=== PATIENT | female | born 1960 | race Caucasian/White ===

== ENCOUNTER → 2017-02-02 | Outpatient (CLI) | payer MEDICARE | LOC: KOH-I 10:44 | DX: R10.11 Right upper quadrant pain (principal); K76.0 Fatty (change of) liver, not elsewhere classified; Z90.49 Acquired absence of other specified parts of digestive tract | CPT/HCPCS: 76705 ==

== ENCOUNTER → 2021-03-26 | Outpatient (CLI) | payer OTHER ==
[~2021-03-26] MED LIST: CLARITIN10 MG PO; FLONASE 0.05% N16 GM; NEURONTIN 300300 MG PO; OMEPRAZOLE40 MG PO; PRAVACHOL20 MG PO; TOPROL XL50 MG PO; VITAMIN D32000 UNI1 PO; WELLBUTRIN SR150 M1 PO; ZANTAC 150 MG150 MG PO
== END ==
LOC: US 09:23
DX: K76.0 Fatty (change of) liver, not elsewhere classified (principal)
CPT/HCPCS: 76705

== ENCOUNTER → 2021-08-07 | Outpatient (CLI) | payer OTHER | LOC: MAMO 11:00 | DX: Z12.31 Encounter for screening mammogram for malignant neoplasm of breast (principal) | CPT/HCPCS: 77063; 77067 ==

== ENCOUNTER → 2021-12-13 | Outpatient (CLI) | payer OTHER | LOC: US 09:10 | DX: R10.13 Epigastric pain (principal); R93.2 Abnormal findings on diagnostic imaging of liver and biliary tract; Z90.49 Acquired absence of other specified parts of digestive tract | CPT/HCPCS: 76700 ==

== ENCOUNTER → 2022-01-14 | Day surgery (SDC) | payer OTHER ==
[~2022-01-14] VITALS: Ht 157.5 cm; Wt 74.4 kg
[~2022-01-14] MED LIST changes: +FAMOTIDINE40 MG PO; +FEXOFENADINE H180 MG PO; -PRAVACHOL20 MG PO; +PRAVASTATIN SOD40 MG PO
== END | disposition home or self-care (01) ==
LOC: OR 06:36
DX: K29.50 Unspecified chronic gastritis without bleeding (principal); K21.00 Gastro-esophageal reflux disease with esophagitis, without bleeding; Z80.0 Family history of malignant neoplasm of digestive organs; K44.9 Diaphragmatic hernia without obstruction or gangrene; K59.09 Other constipation; R14.0 Abdominal distension (gaseous); K64.1 Second degree hemorrhoids; I10 Essential (primary) hypertension; E66.9 Obesity, unspecified; E78.5 Hyperlipidemia, unspecified; E78.00 Pure hypercholesterolemia, unspecified; M79.7 Fibromyalgia; Z90.49 Acquired absence of other specified parts of digestive tract; Z68.30 Body mass index [BMI] 30.0-30.9, adult; Z79.899 Other long term (current) drug therapy; Z88.1 Allergy status to other antibiotic agents; Z98.51 Tubal ligation status; Z20.822 Contact with and (suspected) exposure to COVID-19
CPT/HCPCS: J2704; J7040

== ENCOUNTER → 2022-05-28 | Outpatient (CLI) | payer OTHER | LOC: LAB 12:15 | DX: K76.0 Fatty (change of) liver, not elsewhere classified (principal) | CPT/HCPCS: 36415; 80076 ==